=== PATIENT | female | born 1960 | race Caucasian/White ===

== ENCOUNTER 2023-07-15 17:51 | Emergency (ER) | payer OTHER ==
[~2023-07-15] VITALS: Ht 162.6 cm; Wt 54.9 kg
[2023-07-15 18:04] VITALS: BP 148/76; PULSE 82; RESP 18; TEMP 98.8; O2SAT 98
[2023-07-15] MEDS ORDERED: ACET-503 PO (20:37)
[2023-07-15] MEDS ORDERED: IBUP-2213 PO (20:38)
[2023-07-15] MEDS: MORPHINE SULFATE 4 MG/ML SYR IM ONE (20:43)
== END 2023-07-15 21:25 | disposition home or self-care (01) ==
LOC: MED 17:51
DX: S62.101A Fracture of unspecified carpal bone, right wrist, initial encounter for closed fracture (principal); I12.0 Hypertensive chronic kidney disease with stage 5 chronic kidney disease or end stage renal disease; E11.22 Type 2 diabetes mellitus with diabetic chronic kidney disease; N18.6 End stage renal disease; Z86.73 Personal history of transient ischemic attack (TIA), and cerebral infarction without residual deficits; Z99.2 Dependence on renal dialysis; Z79.4 Long term (current) use of insulin; Z88.0 Allergy status to penicillin; W18.30XA Fall on same level, unspecified, initial encounter; Y93.89 Activity, other specified; Y92.89 Other specified places as the place of occurrence of the external cause; Y99.8 Other external cause status
CPT/HCPCS: 29105; 73030; 73080; 73110; 96372; 99284; J2270